=== PATIENT | female | born 2000 | race Two or more races ===

== ENCOUNTER → 2023-11-13 | Emergency (ER) | payer MEDICAID, OTHER ==
[~2023-11-13] VITALS: Ht 152.4 cm; Wt 50.7 kg
[~2023-11-13] MED LIST: ACET1CAP14 PO; CEPH500T PO; CEPHALEXIN 250 MG CAP PO ONE
[2023-11-13 20:42] VITALS: BP 131/85; PULSE 81; RESP 16; O2SAT 97
[2023-11-13 21:33] LABS: Basophils # (auto) 0 10 ^3/uL (0-0.2); Basophils % (auto) 0.3 % (0.0-2.0); Eosinophils # (auto) 0.2 10 ^3/uL (0-0.8); Eosinophils % (auto) 1.2 % (0.0-7.0); Hematocrit 38.5 % (36.0-46.0); Hemoglobin 12.7 g/dL (12.2-16.2); Lymphocytes # (auto) 2.8 10 ^3/uL (0.4-5.4); Lymphocytes % (auto) 20.8 % (10.0-50.0); Monocytes # (auto) 0.9 10 ^3/uL (0-1.3); Monocytes % (auto) 6.6 % (0.0-12.0); Neutrophils # (auto) 9.5 10 ^3/uL (1.6-8.6); Neutrophils % (auto) 71.1 % (37.0-80.0); Nucleated Red Blood Cells % 0.1 %; Red Blood Cells 4.38 10^6/uL (4.0-5.20); Red Cell Distribution Width 12.6 % (11.8-14.3); White Blood Cell 13.3 10^3/uL (4.4-10.8)
[2023-11-13 21:41] LABS: Alanine Aminotransferase 22 U/L (7-40); Albumin 4.1 g/dL (3.2-4.8); Alkaline Phosphatase 50 U/L (46-116); Anion Gap 7 (5-15); Aspartate Aminotransferase 19 U/L (13-40); Bilirubin, Total 0.2 mg/dL (0.2-1.0); Calcium 9.4 mg/dL (8.5-10.1); Carbon Dioxide 24 mmol/L (20-30); Chloride 107 mmol/L (98-107); Glucose 87 mg/dL (74-106); Sodium 138 mmol/L (136-145); Total Protein 6.8 g/dL (5.7-8.2)
[2023-11-13 21:59] LABS: BUN/Creatinine Ratio 6.9 (10.0-20.0); Blood Urea Nitrogen < 5 mg/dL (9-23)
[2023-11-13 22:04] LABS: Urine Bacteria FEW /hpf (None Seen); Urine Blood Negative /uL (Negative); Urine Clarity Clear (Clear); Urine Color Yellow (Yellow); Urine Protein, UAD Negative (Negative); Urine Specific Gravity 1.029 (1.001-1.035); Urine Urobilinogen Normal (Negative); Urine WBC 1 /hpf (0 - 5)
== END | disposition home or self-care (01) ==
LOC: ER 20:15
DX: O23.41 Unspecified infection of urinary tract in pregnancy, first trimester (principal); R10.2 Pelvic and perineal pain; N39.0 Urinary tract infection, site not specified; Z79.899 Other long term (current) drug therapy; Z3A.10 10 weeks gestation of pregnancy
CPT/HCPCS: 36415; 76801; 80053; 81001; 84702; 85025

== ENCOUNTER 2024-03-10 15:26 | Observation (INO) | payer MEDICAID ==
[~2024-03-10 15:26] MED LIST changes: -CEPHALEXIN 250 MG CAP PO ONE
[2024-03-10] MEDS ORDERED: PREN-129 OR (16:42)
[2024-03-10] MEDS ORDERED: ENO40SY SUBCUT (16:43)
== END 2024-03-10 16:41 | disposition home or self-care (01) ==
LOC: LDRP 15:26 → ER 15:26 → LDRP 15:36
PROVIDERS: ADMIT Obstetrics & Gynecology; ATTEND Obstetrics & Gynecology
DX: O26.893 Other specified pregnancy related conditions, third trimester (principal); R10.2 Pelvic and perineal pain; O99.333 Smoking (tobacco) complicating pregnancy, third trimester; F17.200 Nicotine dependence, unspecified, uncomplicated; O99.323 Drug use complicating pregnancy, third trimester; F12.90 Cannabis use, unspecified, uncomplicated; Z3A.29 29 weeks gestation of pregnancy
CPT/HCPCS: 59025; 81002; 94760; G0378

== ENCOUNTER 2024-03-21 18:59 | Observation (INO) | payer MEDICAID ==
[~2024-03-21 18:59] MED LIST changes: +ENO40SY SUBCUT; +PREN-129 OR
== END 2024-03-21 20:18 | disposition home or self-care (01) ==
LOC: LDRP 18:59
PROVIDERS: ADMIT Obstetrics & Gynecology; ATTEND Obstetrics & Gynecology
DX: O47.00 False labor before 37 completed weeks of gestation, unspecified trimester (principal); O99.323 Drug use complicating pregnancy, third trimester; F12.90 Cannabis use, unspecified, uncomplicated; Z3A.31 31 weeks gestation of pregnancy
CPT/HCPCS: 59025; 76818; 81002; G0378

== ENCOUNTER 2024-04-21 09:35 | Observation (INO) | payer MEDICAID ==
[2024-04-21 10:25] LABS: Basophils # (auto) 0 10 ^3/uL (0-0.2); Basophils % (auto) 0.3 % (0.0-2.0); Eosinophils # (auto) 0.1 10 ^3/uL (0-0.8); Eosinophils % (auto) 1.2 % (0.0-7.0); Hematocrit 32.1 % (36.0-46.0); Hemoglobin 10.7 g/dL (12.2-16.2); Lymphocytes # (auto) 1.5 10 ^3/uL (0.4-5.4); Lymphocytes % (auto) 14.3 % (10.0-50.0); Mean Corpuscular Hemoglobin 28.2 pg (28.0-32.0); Mean Corpuscular Hgb Conc. 33.3 g/dL (32.0-36.0); Mean Corpuscular Volume 84.9 fL (80.0-100.0); Monocytes # (auto) 0.7 10 ^3/uL (0-1.3); Monocytes % (auto) 6.9 % (0.0-12.0); Neutrophils # (auto) 8.3 10 ^3/uL (1.6-8.6); Neutrophils % (auto) 77.3 % (37.0-80.0); Red Blood Cells 3.78 10^6/uL (4.0-5.20); Red Cell Distribution Width 12.4 % (11.8-14.3); White Blood Cell 10.8 10^3/uL (4.4-10.8)
[2024-04-21 10:53] LABS: Albumin 3.5 g/dL (3.2-4.8); Alkaline Phosphatase 127 U/L (46-116); Anion Gap 9 (5-15); Aspartate Aminotransferase 17 U/L (13-40); BUN/Creatinine Ratio 11.1 (10.0-20.0); Bilirubin, Total 0.4 mg/dL (0.2-1.0); Blood Urea Nitrogen 6 mg/dL (9-23); Calcium 8.9 mg/dL (8.7-10.4); Carbon Dioxide 22 mmol/L (20-30); Chloride 107 mmol/L (98-107); Glucose 81 mg/dL (74-106); Potassium 3.7 mmol/L (3.5-5.1); Sodium 138 mmol/L (136-145)
[2024-04-21 10:59] LABS: Alanine Aminotransferase < 9 U/L (7-40)
[2024-04-21 11:33] LABS: INR 1.03 (0.9-1.15); Prothrombin Time 10.9 sec (9.3-11.8)
== END 2024-04-21 13:34 | disposition home or self-care (01) ==
LOC: LDRP 09:35 → UNDOADMOB 09:35 → LDRP 09:49
PROVIDERS: ADMIT Obstetrics & Gynecology; ATTEND Obstetrics & Gynecology
DX: O36.5930 Maternal care for other known or suspected poor fetal growth, third trimester, not applicable or unspecified (principal); O99.323 Drug use complicating pregnancy, third trimester; F12.90 Cannabis use, unspecified, uncomplicated; Z3A.35 35 weeks gestation of pregnancy
CPT/HCPCS: 36415; 59025; 76805; 76818; 80053; 84550; 85025; 85610; 85730; 94760; G0378

== ENCOUNTER 2024-04-24 08:03 | Observation (INO) | payer MEDICAID | END 2024-04-24 10:35 | disposition home or self-care (01) | LOC: LDRP 08:03 | PROVIDERS: ADMIT Obstetrics & Gynecology; ATTEND Obstetrics & Gynecology | DX: O36.5930 Maternal care for other known or suspected poor fetal growth, third trimester, not applicable or unspecified (principal); O99.323 Drug use complicating pregnancy, third trimester; F12.90 Cannabis use, unspecified, uncomplicated; Z3A.36 36 weeks gestation of pregnancy | CPT/HCPCS: 59025; 76818; 81002; 94760; G0378 ==

== ENCOUNTER 2024-04-27 09:44 | Observation (INO) | payer MEDICAID | END 2024-04-27 16:45 | disposition home or self-care (01) | LOC: LDRP 14:10 → UNDOADMOB 14:10 → LDRP 14:15 | PROVIDERS: ADMIT Obstetrics & Gynecology; ATTEND Obstetrics & Gynecology | DX: O36.5930 Maternal care for other known or suspected poor fetal growth, third trimester, not applicable or unspecified (principal); O34.219 Maternal care for unspecified type scar from previous cesarean delivery; O26.893 Other specified pregnancy related conditions, third trimester; N89.8 Other specified noninflammatory disorders of vagina; O99.323 Drug use complicating pregnancy, third trimester; F12.90 Cannabis use, unspecified, uncomplicated; Z3A.36 36 weeks gestation of pregnancy | CPT/HCPCS: 59025; 76805; 76818; 81002; 94760; G0378 ==

== ENCOUNTER 2024-04-29 03:57 | Inpatient (IN) | payer MEDICAID ==
[2024-04-27 16:34] LABS: Basophils # (auto) 0 10 ^3/uL (0-0.2); Basophils % (auto) 0.3 % (0.0-2.0); Eosinophils # (auto) 0.1 10 ^3/uL (0-0.8); Eosinophils % (auto) 1.3 % (0.0-7.0); Hematocrit 31.7 % (36.0-46.0); Hemoglobin 10.5 g/dL (12.2-16.2); Lymphocytes # (auto) 1.5 10 ^3/uL (0.4-5.4); Lymphocytes % (auto) 13.3 % (10.0-50.0); Mean Corpuscular Hemoglobin 27.9 pg (28.0-32.0); Mean Corpuscular Hgb Conc. 33.1 g/dL (32.0-36.0); Mean Corpuscular Volume 84.2 fL (80.0-100.0); Monocytes # (auto) 0.9 10 ^3/uL (0-1.3); Monocytes % (auto) 7.9 % (0.0-12.0); Neutrophils # (auto) 8.7 10 ^3/uL (1.6-8.6); Neutrophils % (auto) 77.2 % (37.0-80.0); Red Blood Cells 3.77 10^6/uL (4.0-5.20); Red Cell Distribution Width 12.2 % (11.8-14.3); White Blood Cell 11.2 10^3/uL (4.4-10.8)
[2024-04-27 16:54] LABS: INR 1.03 (0.9-1.15); Partial Thromboplastin Time 23.6 SEC (24.5-34.5); Prothrombin Time 10.9 sec (9.3-11.8)
[2024-04-27 17:05] LABS: Alkaline Phosphatase 146 U/L (46-116); Anion Gap 6 (5-15); Aspartate Aminotransferase 18 U/L (13-40); Calcium 8.8 mg/dL (8.5-10.1); Carbon Dioxide 22 mmol/L (20-30); Chloride 109 mmol/L (98-107); Glucose 85 mg/dL (74-106); Potassium 4.1 mmol/L (3.5-5.1); Sodium 137 mmol/L (136-145)
[2024-04-27 17:06] LABS: Bilirubin, Total 0.2 mg/dL (0.2-1.0); Total Protein 5.9 g/dL (5.7-8.2)
[2024-04-27 17:16] LABS: Amphetamine Screen, Urine Neg (NEGATIVE); Barbiturate Scree,Urine Neg (NEGATIVE); Benzodiazephine Screen, Urine Neg (NEGATIVE); Cannabinoid Screen, Urine Neg (NEGATIVE); Cocaine Screen, Urine Neg (NEGATIVE); Opiate Scree,Urine Neg (NEGATIVE); Phencyclidine Screen, Urine Neg (NEGATIVE)
[2024-04-27 17:45] LABS: Alanine Aminotransferase 9 U/L (7-40); BUN/Creatinine Ratio 9.3 (10.0-20.0); Blood Urea Nitrogen < 5 mg/dL (9-23)
[2024-04-27 17:45] LABS: Urine Bacteria MANY /hpf (None Seen); Urine Blood Negative /uL (Negative); Urine Clarity Turbid (Clear); Urine Color Yellow (Yellow); Urine Mucus FEW (None Seen); Urine Protein, UAD TRACE (Negative); Urine Specific Gravity 1.026 (1.001-1.035); Urine Urobilinogen 3 mg/dL (Negative); Urine WBC 10 /hpf (0 - 5)
[2024-04-28 08:06] LABS: RPR Non Reactive (Non Reactive)
[2024-04-28 21:06] LABS: Chlamydia Trachomatis, NAA Negative (Negative); Neisseria gonorrhoeae, NAA Negative (Negative)
[2024-04-29] VITALS (16 sets, daily range): BP systolic 121–158; BP diastolic 58–94; PULSE 60–75; RESP 16–20; TEMP 97.5–98.1; O2SAT 95–100
[~2024-04-29] VITALS: Ht 152.4 cm; Wt 63.5 kg
[2024-04-29] MEDS: LACTATED RINGER'S 1,000 ML IV SCH (06:11)
[2024-04-29] MEDS: ceFAZolin 2 GM/D5W50ml 50 ML IV ONE (07:03)
[2024-04-29] MEDS: LACTATED RINGER'S 1,000 ML IV ONE (07:03)
[2024-04-29] MEDS ORDERED: MORPHINE SULF PF 5 MG/10 ML VIAL ONE (08:42)
[2024-04-29] MEDS ORDERED: ePHEDrine SULFATE 50 MG/ML AMP ONE (08:57)
[2024-04-29] MEDS ORDERED: ONDANSETRON HCL 4 MG/2 ML VIAL ONE (08:58)
[2024-04-29] MEDS ORDERED: OXYTOCIN 10UNIT/ML 1ML VIAL ONE (09:09)
[2024-04-29] MEDS ORDERED: MIDAZOLAM HCL 2MG/2ML 2ml VIAL (1mg/ml) ONE (09:10)
[2024-04-29] MEDS ORDERED: KETOROLAC TROMETH 30 MG/ML 1ML VIAL IV PRN (09:45)
[2024-04-29] MEDS ORDERED: NALOXONE HCL 0.4 MG/ML VIAL IV PRN (09:45)
[2024-04-29] MEDS ORDERED: MEPERIDINE HCL (25 MG/ML) 1ML VIAL IV PRN (09:45)
[2024-04-29] MEDS ORDERED: DexAMETHasone SOD PHOS 10MG/1ML VIAL INJ IV PRN (09:45)
[2024-04-29] MEDS ORDERED: HYDROmorphone HCL 2 MG/ML VL/or syr IV PRN ×2 (09:45)
[2024-04-29] MEDS: ONDANSETRON HCL 4 MG/2 ML VIAL IV ONE (09:56)
[2024-04-29] MEDS: HYDROmorphone HCL 2 MG/ML VL/or syr IV PRN (11:38)
[2024-04-29] MEDS: ACETAMINOPHEN IV 1000 MG/100ML (10MG/ML) IV ONE (12:13)
[2024-04-29] MEDS: ONDANSETRON HCL 4 MG/2 ML VIAL IV PRN (12:26)
[2024-04-29] MEDS: ceFAZolin 1GM/50ML 50 ML IV SCH (15:28)
[2024-04-29 18:06] LABS: Treponema pallidum Ab (FTA-Ab) Non Reactive (Non Reactive)
[2024-04-29] MEDS: ONDANSETRON HCL 4 MG/2 ML VIAL ONE (20:02)
[2024-04-29] MEDS: NALBUPHINE HCL 10 MG/1ml INJECTION SUBCUT ONE (20:02)
[2024-04-29] MEDS: ACETAMINOPHEN IV 1000 MG/100ML (10MG/ML) IV SCH (21:00)
[2024-04-29] MEDS: AMMONIA 0.33 ML INHALANT IN ONE (22:36)
[2024-04-29] MEDS: diphenhdrAMINE HCL 50 MG/1 ML VL IV PRN (22:49)
[2024-04-29] MEDS: ENOXAPARIN SOD 40 MG/0.4 ML SYRINGE SC ONE (22:52)
[2024-04-30] VITALS (11 sets, daily range): BP systolic 107–152; BP diastolic 60–89; PULSE 66–86; RESP 16–18; TEMP 98–98.6; O2SAT 97–100
[2024-04-30] MEDS: NALBUPHINE HCL 10 MG/1ml INJECTION SUBCUT ONE (03:06)
[2024-04-30] MEDS: FEXOFENADINE HCL 60 MG TAB PO ONE (03:06)
[2024-04-30] MEDS: ACETAMINOPHEN IV 1000 MG/100ML (10MG/ML) IV SCH (04:44)
[2024-04-30] MEDS: diphenhdrAMINE HCL 50 MG/1 ML VL IV PRN (04:54)
[2024-04-30 06:40] LABS: Basophils # (auto) 0 10 ^3/uL (0-0.2); Basophils % (auto) 0.2 % (0.0-2.0); Eosinophils # (auto) 0.2 10 ^3/uL (0-0.8); Eosinophils % (auto) 1.3 % (0.0-7.0); Hematocrit 27.9 % (36.0-46.0); Hemoglobin 9.2 g/dL (12.2-16.2); Lymphocytes # (auto) 1.6 10 ^3/uL (0.4-5.4); Lymphocytes % (auto) 12.3 % (10.0-50.0); Mean Corpuscular Hemoglobin 27.8 pg (28.0-32.0); Mean Corpuscular Hgb Conc. 32.9 g/dL (32.0-36.0); Mean Corpuscular Volume 84.5 fL (80.0-100.0); Monocytes # (auto) 0.9 10 ^3/uL (0-1.3); Monocytes % (auto) 7.1 % (0.0-12.0); Neutrophils # (auto) 10.3 10 ^3/uL (1.6-8.6); Neutrophils % (auto) 79.1 % (37.0-80.0); Red Cell Distribution Width 12.3 % (11.8-14.3)
[2024-04-30 07:10] LABS: Albumin 2.9 g/dL (3.2-4.8); Alkaline Phosphatase 117 U/L (46-116); Anion Gap 3 (5-15); Aspartate Aminotransferase 24 U/L (13-40); Bilirubin, Total < 0.2 mg/dL (0.2-1.0); Calcium 8.6 mg/dL (8.7-10.4); Carbon Dioxide 28 mmol/L (20-30); Chloride 108 mmol/L (98-107); Glucose 92 mg/dL (74-106); Potassium 3.9 mmol/L (3.5-5.1); Sodium 139 mmol/L (136-145); Total Protein 5.2 g/dL (5.7-8.2); Uric Acid 3.6 mg/dL (3.1-7.8)
[2024-04-30 07:21] LABS: Alanine Aminotransferase < 9 U/L (7-40); BUN/Creatinine Ratio 7.8 (10.0-20.0); Blood Urea Nitrogen < 5 mg/dL (9-23)
[2024-04-30] MEDS ORDERED: BISACODYL 10 MG RECT SUPP PR PRN (07:30)
[2024-04-30] MEDS ORDERED: HYDROcodone-ACET 5/325MG TAB PO PRN (07:30)
[2024-04-30 07:48] LABS: Urine Bacteria None Seen /hpf (None Seen)
[2024-04-30] MEDS: HYDROcodone-ACET 5/325MG TAB PO PRN (07:56)
[2024-04-30 08:12] LABS: Urine Blood 2+ /uL (Negative); Urine Clarity Clear (Clear); Urine Color Colorless (Yellow); Urine Protein, UAD Negative (Negative); Urine Specific Gravity 1.009 (1.001-1.035); Urine Urobilinogen Normal (Negative); Urine WBC 1 /hpf (0 - 5)
[2024-04-30 08:12] LABS: Protein, Urine < 6.0 mg/dL (0.0-11.9)
[2024-04-30 08:15] LABS: Creatinine, Urine 26.85 mg/dL (30.0-125.0)
[2024-04-30 08:40] LABS: Urine Protein/Creatinine Ratio < 0.22
[2024-04-30] MEDS: DOCUSATE SOD 100 MG CAP PO SCH (10:02)
[2024-04-30] MEDS: SIMETHICONE 80 MG CHEWABLE TABLET PO SCH (11:33)
[2024-04-30] MEDS: IBUPROFEN 800 MG TAB PO PRN (12:51)
[2024-04-30] MEDS: ENOXAPARIN SOD 40 MG/0.4 ML SYRINGE SC SCH (21:13)
[2024-05-01 03:15] VITALS: BP 132/70; PULSE 74; RESP 16; TEMP 98.2; O2SAT 96
[2024-05-01 05:29] LABS: Hematocrit 27.6 % (36.0-46.0); Hemoglobin 9.2 g/dL (12.2-16.2)
[2024-05-01 07:20] VITALS: BP 128/69; PULSE 71; RESP 16; TEMP 98.6; O2SAT 96
[2024-05-01] MEDS ORDERED: IBUP-1456 PO (08:50)
[2024-05-01] MEDS ORDERED: DOCU-94 PO (08:50)
[2024-05-01] MEDS ORDERED: HYDR-4902 PO (08:50)
[2024-05-01 11:00] VITALS: BP 139/88; PULSE 79; RESP 16; TEMP 98.8; O2SAT 98
[2024-05-01] MEDS ORDERED: ENOXAPARIN SOD 40 MG/0.4 ML SYRINGE SC SCH (21:00)
[2024-05-02] MEDS ORDERED: CEPH500C PO (20:40)
== END 2024-05-01 12:13 | disposition home or self-care (01) | DRG 540 ==
LOC: LDRP 03:57
PROVIDERS: ADMIT Obstetrics & Gynecology; ATTEND Obstetrics & Gynecology
PROC: 10D00Z1 Extraction of Products of Conception, Low, Open Approach (ICD-10-PCS; principal; 2024-04-29 08:46)
DX: O34.211 Maternal care for low transverse scar from previous cesarean delivery (principal); D68.61 Antiphospholipid syndrome; O60.14X0 Preterm labor third trimester with preterm delivery third trimester, not applicable or unspecified; O99.12 Other diseases of the blood and blood-forming organs and certain disorders involving the immune mechanism complicating childbirth; O36.5930 Maternal care for other known or suspected poor fetal growth, third trimester, not applicable or unspecified; O69.1XX0 Labor and delivery complicated by cord around neck, with compression, not applicable or unspecified; Z37.0 Single live birth; Z3A.36 36 weeks gestation of pregnancy; Z86.718 Personal history of other venous thrombosis and embolism; Z86.711 Personal history of pulmonary embolism
CPT/HCPCS: 36415; 59025; 80053; 80307; 81001; 81002; 82570; 84156; 84550; 85014; 85018; 85025; 85610; 85730; 86592; 86803; 86850; 86900; 86901; 94760; 94762; 96360; 96361; 96372; 96374; 96375; G0378; J0131; J2250; J2405

== ENCOUNTER 2024-05-02 19:16 | Emergency (ER) | payer MEDICAID ==
[~2024-05-02] VITALS: Ht 152.4 cm; Wt 59.1 kg
[~2024-05-02 19:16] MED LIST changes: +DOCU-94 PO; +HYDR-4902 PO; +IBUP-1456 PO
[2024-05-02 19:59] VITALS: BP 150/97; PULSE 111; RESP 18; O2SAT 97
[2024-05-02] MEDS ORDERED: CEPH500C PO (20:40)
== END 2024-05-02 22:48 | disposition home or self-care (01) ==
LOC: ER 19:16
DX: N61.0 Mastitis without abscess (principal); Z79.899 Other long term (current) drug therapy